=== PATIENT | female | born 1950 | race Caucasian/White ===

== ENCOUNTER → 2021-04-16 | Outpatient (CLI) | payer OTHER ==
[~2021-04-16] MED LIST: CELEXA 20 MG TA20 M1 PO; COLACE100 MG PO; FISH OIL + VIT1 EACH; KLOR-CON 1010 MEQ PO; LOMOTIL TABLET1 EACH PO; NEURONTIN 300300 M1 PO; OXYCODON-ACETA1 EAC1 PO; VICODIN 5-5001 EACH; VITAMIN D35000 UNI1 PO; VITAMINC500 PO; WELCHOL 625 MG625 MG PO; XANAX 0.5 MG0.5 M1 PO
[2021-04-16 09:46] LABS: CALCIUM 9.4 mg/dL (8.5-10.1); CREATININE 1.6 mg/dL (0.6-1.3); POTASSIUM 4.3 mmol/L (3.5-5.1)
== END ==
LOC: M.LAB 09:00 → M.CT 10:00
PROVIDERS: ATTEND Nurse Practitioner Family
DX: N20.0 Calculus of kidney (principal); N28.1 Cyst of kidney, acquired; I10 Essential (primary) hypertension; I70.0 Atherosclerosis of aorta; M41.80 Other forms of scoliosis, site unspecified

== ENCOUNTER → 2021-04-24 | Outpatient (CLI) | payer OTHER ==
[2021-04-24 10:39] LABS: CALCIUM 8.6 mg/dL (8.5-10.1); CREATININE 1.2 mg/dL (0.6-1.3); POTASSIUM 4.4 mmol/L (3.5-5.1)
--- NOTE | 2021-04-24 17:19 | CARDNUC ---
[place] [address] CARDIAC NUCLEAR IMAGING REPORT Name: ORLANDO JUARES Room: [facility]#: [id number] Admission: 04/24/21 Attend Phys: Juan J Krishnamurthy, Discharge: Date of : 54 Date of Service: 04/24/21 1719 Report #: [id number] THIS REPORT FOR: cc: Franklyn Hernandez Russell J. DO Liston,Juan J García MD [facility] ~ APPROVED REPORT Imaging Protocol: Rest Tc-99m/Stress Tc-99m 1 day Study performed: 04/24/2021 08:55:02 Indication: Chest pain, Dyspnea Patient Location: Out-Patient Stress Tech: JENNIFER STEINBERG Stress Nurse: Jil Tong RN NM Tech:ZACK Dunbar Ht: 5 ft 4 in Wt: 150 lbs BSA: 1.73 m2 BMI: 25.74 Medical History Medical History: Carotid artery disease, HTN, Hyperlipidemia Medications: atorvastatin, lisinopril, dyazide Allergies: No known drug allergies Cardiac Risk Factors: Age, Current Smoker, HTN, Hyperlipidemia Exercise History: Indeterminate Resting Data Rest SPECT myocardial perfusion imaging was performed in supine position 30 minutes following the intravenous injection of 10.1 mCi of Tc-99m Sestamibi. Time of rest injection: 07:55 The images were gated to evaluate regional wall motion and calculate left ventricular ejection fraction. Administration Route: IV Administration Site: Left AC Pharmacologic Stress Pharmacologic stress test was performed by injecting Regadenoson 0.4 mg IV push over 10-15 seconds immediately followed by the intravenous injection of 34.6 mCi of Tc-99m Sestamibi. Time of stress injection: 09:05 [place] [address] CARDIAC NUCLEAR IMAGING REPORT Name: ORLANDO JUARES Room: [facility]#: [id number] Admission: 04/24/21 Attend Phys: Juan J Krishnamurthy, Discharge: Date of : 54 Date of Service: 04/24/21 1719 Report #: [id number] Administration Route: IV Administration Site: Left AC Heart Rate at time of stress injection: 79 bpm. Gated Stress SPECT was performed 45 minutes after stress injection. The images were gated to evaluate regional wall motion and calculate left ventricular ejection fraction. Prone imaging was performed. Stress Test Details Stress Test: Pharmacologic stress testing performed using 0.4 mg of regadenoson per 5 mL given IV over 10 seconds. HR Max Heart Rate (APMHR): 152 bpm Resting HR: 60 bpm Target HR (85% APMHR): 129 bpm Max HR Achieved: 79 bpm % of APMHR: 51 Recovery HR: 73 bpm BP Resting BP: 154/81 mmHg Max BP: 164/78 mmHg Recovery BP: 170/92 mmHg ECG Resting ECG: Sinus Rhythm Stress ECG: Sinus Rhythm ST Change: None Arrhythmia: None Recovery ECG: Sinus Rhythm Recovery ST Change: None Recovery Arrhythmia: None Clinical Reason for Termination: Completed protocol Patient tolerated Lexiscan infusion without significant cardiac symptoms. Nurse Comments pt has a history of hip surgery Stress ECG Conclusion Baseline twelve-lead EKG shows sinus rhythm without significant ST segment or T wave abnormality. EKGs obtained during and post Lexiscan infusion shows sinus rhythm with no significant ST segment or T wave changes when compared to baseline. There were no stress[place] [address] CARDIAC NUCLEAR IMAGING REPORT Name: ORLANDO JUARES Room: [facility]#: [id number] Admission: 04/24/21 Attend Phys: Juan J Krishnamurthy, Discharge: Date of : 54 Date of Service: 04/24/21 1719 Report #: [id number] Study Quality Study: Good Artifact: No artifact Study Data At rest, the left ventricular ejection fraction was 75%.. Post stress, the left ventricular ejection was 79%.. TID = 0.95. Perfusion Perfusion images obtained at rest and post Lexiscan stress showed uniform uptake of the radioisotope throughout the myocardium. There were no defects to suggest infarct or ischemia. Wall Motion Normal left ventricular wall motion. Nuclear Conclusion ECG Findings: negative for ischemia Clinical Findings: negative for ischemia Nuclear Findings: negative for ischemia Exercise Capacity: not assessed Left Ventricular Function: normal Risk Study: low Perfusion images show no defect to suggest infarct or ischemia. Left ventricular systolic function appears normal on gated study. This is a low risk study. <Conclusion> Baseline twelve-lead EKG shows sinus rhythm without significant ST segment or T wave abnormality. EKGs obtained during and post Lexiscan infusion shows sinus rhythm with no significant ST segment or T wave changes when compared to baseline. There were no stress-induced arrhythmias. <ELECTRONICALLY SIGNED> By: Juan J Krishnamurthy MD, FACC 04/24/21 171 18 18 Juan J Krishnamurthy MD, FACC /INF
== END ==
LOC: M.NUC 04-08 16:03
PROVIDERS: ATTEND Internal Medicine Cardiovascular Disease
DX: I10 Essential (primary) hypertension (principal); R06.02 Shortness of breath

== ENCOUNTER → 2021-07-09 | Outpatient (CLI) | payer OTHER ==
[2021-07-09 10:37] LABS: ALBUMIN 3.6 g/dL (3.4-5.0); CALCIUM 8.8 mg/dL (8.5-10.1); CREATININE 0.9 mg/dL (0.6-1.3); POTASSIUM 3.8 mmol/L (3.5-5.1); TOTAL BILIRUBIN 0.3 mg/dL (<0.1-1.0); TOTAL PROTEIN 6.9 g/dL (6.4-8.2)
== END ==
LOC: M.LAB 10:05
PROVIDERS: ATTEND Nurse Practitioner Family
DX: N28.9 Disorder of kidney and ureter, unspecified (principal); R89.9 Unspecified abnormal finding in specimens from other organs, systems and tissues